=== PATIENT | female | born 1985 | race Caucasian/White ===

== ENCOUNTER 2019-02-18 10:39 | Inpatient (IN) | payer BC ==
[2019-02-18] MEDS ORDERED: Buffered Lidocaine 1% SYRIN* 1 ML/SYRINGE INTRADERM ONE (12:36)
[2019-02-18] MEDS ORDERED: Azithromycin TAB* 250 MG PO ONE (12:42)
--- NOTE | 2019-02-18 12:52 | HP ---
General Information - Reason for Visit Pt presents with gross SROM after voiding this AM. Vaginal pooling confirmed in clinic, and ROM+ positive. Pt with very uncomplicated otherwise to date. No complaints otherwise. - General Information Maternal Age: 33 Grav: 1 Para: 0 SAB: 0 IEA: 0 Estimated Due Date: 04/07/19 Determined By: LMP Gestational Age in Weeks/Days: 33+1 Maternal Blood Type and Rh: O Positive - Results this Serology/RPR Result: Non-Reactive Rubella Result: Non-Immune HBsAg Result: Negative HIV Result: Negative Past Medical History Delivery History: See Records - G1 Pertinent Past Medical History: See Records - h/o kidney stones, anxiety Pertinent Past Surgical History: See Records - lipoma excision, kidney stone surgery Pertinent Family History: Non-Contributory - Antepartal Records Antepartal Records: Reviewed, Uncomplicated Review of Systems Constitutional: Comfortable CV Complaint: No Respiratory: Shortness of Breath: No Gastrointestinal: No Nausea/Vomiting, Normal Bowel Movement Genitourinary: Leaking Fluid, No Dysuria, No Bleeding Musculoskeletal: No Complaint Neurological: No Headache Movement: Normal Exam Allergies/Adverse Reactions: Allergies No Known Allergies Allergy (Verified 02/09/17 13:23) VS normal, afebrile Lab Values - Entire Visit: Laboratory Tests 02/18/19 11:03 Vag Amniotic Fld Detect Positive - Measurements Height: 5 ft 2 in Weight: 162 lb Weight in lbs: [id number] Body Mass Index (BMI): 29.6 Pre- Weight: 135 lb Weight Gained This : 27 lbs and 0 ozs - Exam Breast: Breast Exam Deferred Extremities: No Edema Heart: Normal Rhythm/Heart Sounds HEENT: No Significant Findings Lungs: Clear Bilaterally Rectal: Rectal Exam Deferred - Abdominal Exam Abdomen Exam: Non-Tender, Fundal Height Consistent with Dates - Ultrasound/Biophysical Profile Ultrasound Status: Bedside Exam - vertex presentation, somewhat decreased fluid seen subjectively, active FMs seen Targeted Exam Findings Membrane Status: SROM Amniotic Fluid Evaluation: Gross Rupture, Positive ROM Plus Sterile Speculum Exam: In office, pooling seen Bleeding/Discharge: None EFM Findings - External Monitor Findings Baseline Heart Rate: 130 External Monitor Findings: Accelerations Present, No Pattern of Variable or Late Decelerations, Variability Moderate, Baseline Stable Contractions: None Assessment/Plan - Assessment 33+1 wks with PPROM, no evidence of infection or labor at this point. Very reassuring status. - Obstetrical Risk Factors Obstetrical Risk Factors: GBS Unknown - Plan Plan: Admit - Anticipate Vaginal Delivery Plan Comment: Discussed plan at length. Admit until delivery. Plan induction at 34 wks (). IV antibiotics ordered for 24 hrs, then PO for 5 days. Betamethasone ordered (48 hrs). Plan NST BID. Will obtain growth ultrasound. NICU consult. All questions answered. - Date/Time of Admission Date of Admission: 02/18/19 Time of Admission: 12:56
[2019-02-18] MEDS ORDERED: NS 0.9% 100 ML* 0 ML ONE (13:06)
[2019-02-18] MEDS: Ampicillin ADVAN(*) 2 GM in NS 0.9% 100 ML* 100 ML IVPB SCH ×2 (13:56→19:58)
[2019-02-18] MEDS: Betamethasone INJ* 6 MG/ML 5 ML VIAL (30 MG) IM SCH (13:57)
[2019-02-18 13:59] LABS: ABS Lymphocytes 1.2 10^3/ul (1.0-4.8); ABS Monocytes 0.6 10^3/ul (0-0.8); ABS Neutrophils 9.7 10^3/ul (1.5-7.7); Eosinophil % 0.1 %; Hematocrit 33 % (35-47); Hemoglobin 11.3 g/dL (12.0-16.0); Lymphocyte % 10.4 %; Mean Corpuscular HGB Conc 34 g/dL (31-36); Mean Corpuscular Hemoglobin 32 pg (27-31); Mean Corpuscular Volume 93 fL (80-97); Mean Platelet Volume 8.5 fL (7.4-10.4); Nucleated Red Blood Cells % 0.1; Platelet Count 254 10^3/uL (150-450); Red Blood Count 3.59 10^6 /uL (3.70-4.87); Red Cell Distribution Width 14 % (10.5-15); White Blood Count 11.5 10^3/uL (3.5-10.8)
[2019-02-19] MEDS: Ampicillin ADVAN(*) 2 GM in NS 0.9% 100 ML* 100 ML IVPB SCH ×4 (00:56→19:48)
--- NOTE | 2019-02-19 09:10 | PN ---
Progress Note - Progress Note Date of Service: 02/19/19 Note: see green sheet. nst reactive/ reviewed paln for care 33 + week pprom steroids/ antibiotics/ induction at 34 weeks/ monitor for infection
[2019-02-19] MEDS: Prenatal Vitamin TAB PO SCH ×2 (10:28→10:29)
[2019-02-19] MEDS: Calcium Carbonate CHEW TAB* 500 MG (TUMS) PO PRN ×2 (10:28→22:12)
[2019-02-19] MEDS: Betamethasone INJ* 6 MG/ML 5 ML VIAL (30 MG) IM SCH (13:26)
[2019-02-20] MEDS: Ampicillin ADVAN(*) 2 GM in NS 0.9% 100 ML* 100 ML IVPB SCH ×3 (01:48→13:44)
--- NOTE | 2019-02-20 07:05 | PN ---
Progress Note - Progress Note Date of Service: 02/20/19 Note: pt doing well + fm vss afebrile uterus nontender nst reactive. 33+ week s pprom continue antibiotics
[2019-02-20] MEDS: Calcium Carbonate CHEW TAB* 500 MG (TUMS) PO PRN (07:45)
[2019-02-20] MEDS: Prenatal Vitamin TAB PO SCH (19:13)
[2019-02-20] MEDS: Amoxicillin PO (*) 875 MG TAB PO SCH (21:15)
[2019-02-21] MEDS: Amoxicillin PO (*) 875 MG TAB PO SCH ×2 (08:56→21:01)
[2019-02-21] MEDS: Prenatal Vitamin TAB PO SCH (09:03)
--- NOTE | 2019-02-21 12:33 | PN ---
Progress Note - Progress Note Date of Service: 02/21/19 Note: S: pt feels well. Leaking clear fluid intermittently. No VB. +FM though less than before she was hospitalized. Occ BH but nothing persistent. No fever/ chills. AVSS. RNST Gen: NAD Abd: soft, NT Ext: no swelling or calf tenderness A: P0 @33.4wks GA with PPROM, on latency abx, GBS+. No s/s of labor or infection at this point. P: discussed extensively with pt. Would recommend Induction on when she is 34 weeks. May consider cervical exam thu with possible cervidil placement if not favorable. Otherwise, would start on , discussed pitocin, GBS positive. Many questions answered.
[2019-02-22] MEDS: Amoxicillin PO (*) 875 MG TAB PO SCH ×2 (08:51→21:00)
[2019-02-22] MEDS: Prenatal Vitamin TAB PO SCH (08:51)
--- NOTE | 2019-02-22 08:59 | PN ---
Progress Note - Progress Note Date of Service: 02/22/19 SOAP: Subjective: [ at 33+ weeks EGA with PPROM. Patient is comfortable, denies abdominal pain/contractions, or vaginal bleeding.] Objective: [ Vital Signs Temp Pulse Resp BP Pulse Ox 97.7 F 68 20 114/60 100 02/21/19 21:05 02/21/19 21:05 02/21/19 21:05 02/21/19 21:05 02/21/19 21:05 Non stress test Reactive, no contractions noted on toco's. Lungs CTA B/L, No CVA tenderness CV RRR Abdomen soft, not tender, gravid with palpable movement.] Assessment: [PPROM at 33 weeks EGA, stable with no /sx of PTL or infection.] Plan: [Continue current care and surveillance. Planned induction at 34 weeks unless labor or s/sx of chorioamnionitis ensues.]
[2019-02-22] MEDS ORDERED: Witch Hazel PAD* JAR ONE (13:19)
[2019-02-22] MEDS ORDERED: Witch Hazel PAD* JAR TOPICAL PRN (13:30)
[2019-02-23] MEDS: Amoxicillin PO (*) 875 MG TAB PO SCH ×3 (09:12→20:57)
[2019-02-23] MEDS: Prenatal Vitamin TAB PO SCH ×2 (10:45→10:46)
--- NOTE | 2019-02-23 15:59 | PN ---
Progress Note - Progress Note Date of Service: 02/23/19 SOAP: Subjective: [Pt doing well no pain] Objective: [VSS AFEB Uterus; soft non tender Ext: non tender no edema] Assessment: [Pt 33 yo with PProm at 33 6/7 weks] Plan: [Pt is to have induction tomorrow at 34 weeks/ GBS positive so will need PCN G in labor.]
[2019-02-24] MEDS ORDERED: Buffered Lidocaine 1% SYRIN* 1 ML/SYRINGE INTRADERM ONE (07:43)
[2019-02-24] MEDS ORDERED: Penicillin G Potassium IV* 5,000,000 UNITS in NS 0.9% 100 ML* 100 ML IVPB ONE (07:43)
[2019-02-24] MEDS ORDERED: Lactated Ringers 1000 ML Bag* 1,000 ML IV ONE ×2 (07:43→23:30)
[2019-02-24] MEDS ORDERED: Misoprostol TAB* 100 MCG PO ONE ×2 (07:59→12:49)
[2019-02-24] MEDS ORDERED: Lactated Ringers 1000 ML Bag* 1,000 ML IV SCH ×2 (08:00→23:45)
[2019-02-24 08:57] LABS: ABS Eosinophils 0.1 10^3/ul (0-0.6); ABS Lymphocytes 1.7 10^3/ul (1.0-4.8); ABS Monocytes 0.6 10^3/ul (0-0.8); ABS Neutrophils 10.6 10^3/ul (1.5-7.7); Eosinophil % 0.6 %; Hematocrit 36 % (35-47); Hemoglobin 12.1 g/dL (12.0-16.0); Lymphocyte % 13.3 %; Mean Corpuscular HGB Conc 34 g/dL (31-36); Mean Corpuscular Hemoglobin 31 pg (27-31); Mean Corpuscular Volume 93 fL (80-97); Mean Platelet Volume 8.1 fL (7.4-10.4); Platelet Count 292 10^3/uL (150-450); Red Blood Count 3.85 10^6 /uL (3.70-4.87); Red Cell Distribution Width 14 % (10.5-15)
--- NOTE | 2019-02-24 11:13 | PTEDU ---
Patient Name: EMILY MCGHEE EMILY MCGHEE selected video: Never Ever Shake a Baby to view on 02/24/2019 at 11:12:50 AM from [id number]
--- NOTE | 2019-02-24 11:25 | PTEDU ---
Patient Name: EMILY MCGHEE EMILY MCGHEE selected video: Follow Me Mum: [employer] to Successful to view on 02/24 at 11:25:08 AM from [id number]
--- NOTE | 2019-02-24 12:47 | PN ---
Progress Note - Progress Note Date of Service: 02/24/19 Note: Pt at 34+0 wks with PPROM, admitted one week ago. Labor induction planned for today. Pt without complaints, active FMs, continued occ leakage of clear fluid VS normal, afebrile. Abd soft, nontender NST reactive, no decels. Toxey: no ctx Cervix FT/50%/-2 A/P: 34+0 with PPROM. Very reassuring status. Unfavorable cervix, so will start induction with PO misoprostol. Plan to reassess after 4 hrs.
[2019-02-24] MEDS ORDERED: Misoprostol TAB* 100 MCG ONE (12:54)
[2019-02-24] MEDS: Penicillin G Potassium IV* 2,500,000 UNITS in NS 0.9% 100 ML* 100 ML IVPB SCH ×3 (13:09→21:00)
--- NOTE | 2019-02-24 15:42 | CONSULT ---
Consult Consult: Consult requested by Dr. Orourke. Spoke to mother on two occassions- 02/21 and 02/22. PC: 33 yo prim[place]av[place], serologies negative, GBS positive presented to L&D following SROM at 33 1/7 weeks. CAROL ANN 04/07/19 by dates. No other symptoms. No significant history. She was admitted for antibiotics and steroids with planned induction at 34 weeks gestation. I discussed the problems of prematurity including, respiratory distress syndrome , hypoglycemia, feeding problems, sepsis, Hyperbilirubinemia, in detail with mother and NICU information leaflets given. Answered all questions and will reconsult again if mother has any questions. Time spent on consult: 30 minutes.
[2019-02-24] MEDS ORDERED: Oxytocin in LR* 20 UNITS/1,000 ML BAG IVPB SCH (18:00)
[2019-02-24] MEDS ORDERED: OBEPIDURAL* 250 ML EPIDURAL ONE (21:30)
[2019-02-24] MEDS ORDERED: Sodium Citrate/Citric Acid* 15 ML UDC PO PRN (23:30)
[2019-02-24] MEDS ORDERED: Famotidine TAB* 20 MG PO PRN (23:30)
[2019-02-24] MEDS ORDERED: Phenylephrine 40 MCG/ML SYRINGE IV PUSH PRN ×2 (23:30)
[2019-02-24] MEDS ORDERED: Lactated Ringers 1000 ML Bag* 500 ML IV PRN ×2 (23:30)
[2019-02-24] MEDS ORDERED: OBEPIDURAL* 250 ML EPIDURAL SCH (23:45)
[2019-02-25] MEDS: Penicillin G Potassium IV* 2,500,000 UNITS in NS 0.9% 100 ML* 100 ML IVPB SCH (01:20)
[2019-02-25] MEDS ORDERED: Witch Hazel PAD* JAR TOPICAL PRN (02:46)
[2019-02-25] MEDS ORDERED: Acetaminophen TAB* 325 MG PO PRN (02:46)
[2019-02-25] MEDS ORDERED: Measles, Mumps,Rubella VACC* 0.5 ML/VIAL SUBCUT ONE (02:50)
[2019-02-25] MEDS ORDERED: Oxytocin in LR* 20 UNITS/1,000 ML BAG IVPB SCH (03:00)
[2019-02-25] MEDS ORDERED: Lactated Ringers 1000 ML Bag* 1,000 ML IV SCH (03:00)
--- NOTE | 2019-02-25 03:00 | PROCNOTE ---
[facility] OB: Delivery Note - Delivery A Date of : 02/25/19 Time of : 02:22 Sex: Female Weight at : 5 lb 8 oz Score 1 Minute: 9 Score 5 Minutes: 9 Gestational Age in Weeks and Days at Delivery: 34 Weeks and 1 Days Delivery Method: Spontaneous Vaginal Labor: Induced Did Patient attempt ?: N/A, No Previous Amniotic Fluid: Clear Estimated Blood Loss: 300 Anesthesia/Analgesia: CEI for Labor Delivered By: Faby Orourke - Nursery Level of Nursery: Regular/Bedside - Perineum Perineal Injury: Vaginal Laceration - small, posterior Perineal Repair: By Delivering Practioner - Events Delivery Events of Note: Pitocin During Labor, Full Course of Antibiotics, ROM > 24 Hours, Steriods Given for Lung Maturity - Additional Delivery Notes Additional Delivery Notes: Pt admitted at 33 wks with PPROM, received two doses of betamethasone and a full course of latency antibiotics until induction started this morning at 34+0 wks. Cervical ripened with misoprostol x2, then she received pitocin. She received an epidural at about 4cm. She then progressed well to C/C. She pushed for less than 10 min to deliver the head in a controlled fashion. Compound posterior arm present. Shoulders and body delivered easily. Baby with good tone and cried quickly, placed on mother's abdomen. Dr. Saxena present shortly after delivery. IV pitocin increased. Placenta delivered quickly and intact. Excellent fundal tone. Small posterior vaginal lac closed with a few interrupted stitches of 3-0 Vicryl rapide.
[2019-02-25] MEDS ORDERED: Lidocaine 1% INJ* 10 MG/ML 30 ML SDV ONE (04:44)
[2019-02-25] MEDS: Dibucaine 1% 28.35 GM TUBE PR PRN (08:00)
[2019-02-25] MEDS: Ibuprofen TAB* 600 MG PO PRN ×3 (08:00→23:29)
[2019-02-25] MEDS: Docusate CAP* 100 MG PO SCH ×3 (08:00→21:04)
[2019-02-25] MEDS ORDERED: Simethicone TAB* 80 MG TAB.CHEW PO SCH (08:30)
[2019-02-25] MEDS: Prenatal Vitamin TAB PO SCH (19:50)
[2019-02-26 06:41] LABS: ABS Basophils 0.2 10^3/ul (0-0.2); ABS Eosinophils 0.2 10^3/ul (0-0.6); ABS Lymphocytes 2.1 10^3/ul (1.0-4.8); ABS Monocytes 0.8 10^3/ul (0-0.8); ABS Neutrophils 8.7 10^3/ul (1.5-7.7); Eosinophil % 1.4 %; Hematocrit 34 % (35-47); Hemoglobin 11.4 g/dL (12.0-16.0); Mean Corpuscular HGB Conc 33 g/dL (31-36); Mean Corpuscular Hemoglobin 31 pg (27-31); Mean Corpuscular Volume 94 fL (80-97); Mean Platelet Volume 7.6 fL (7.4-10.4); Platelet Count 244 10^3/uL (150-450); Red Blood Count 3.64 10^6 /uL (3.70-4.87); Red Cell Distribution Width 14 % (10-15)
[2019-02-26] MEDS: Docusate CAP* 100 MG PO SCH ×3 (08:28→22:09)
[2019-02-26] MEDS: Ibuprofen TAB* 600 MG PO PRN ×3 (08:28→22:08)
[2019-02-26] MEDS ORDERED: Ferrous Gluconate TAB* 324 MG TAB PO SCH (09:00)
[2019-02-26] MEDS: Prenatal Vitamin TAB PO SCH (16:14)
[2019-02-26] MEDS: Dibucaine 1% 28.35 GM TUBE PR PRN (22:09)
[2019-02-27 08:30] VITALS: BP 113/74
[2019-02-27] MEDS: Docusate CAP* 100 MG PO SCH (09:37)
[2019-02-27] MEDS: Prenatal Vitamin TAB PO SCH (09:37)
== END 2019-02-27 11:15 | disposition home or self-care (01) | DRG 560 ==
LOC: MCHOBOUT 10:39 → MCHOB 13:03
PROVIDERS: ADMIT Obstetrics & Gynecology; ATTEND Obstetrics & Gynecology
PROC: 10E0XZZ Delivery of Products of Conception, External Approach (ICD-10-PCS; principal; 2019-02-25)
PROC: 3E033VJ Introduction of Other Hormone into Peripheral Vein, Percutaneous Approach (ICD-10-PCS; 2019-02-25)
PROC: 0KQM0ZZ Repair Perineum Muscle, Open Approach (ICD-10-PCS; 2019-02-25)
DX: O42.113 Preterm premature rupture of membranes, onset of labor more than 24 hours following rupture, third trimester (principal); O71.4 Obstetric high vaginal laceration alone; Z37.0 Single live birth; O99.344 Other mental disorders complicating childbirth; F41.9 Anxiety disorder, unspecified; O99.824 Streptococcus B carrier state complicating childbirth; O32.2XX0 Maternal care for transverse and oblique lie, not applicable or unspecified; Z3A.34 34 weeks gestation of pregnancy
CPT/HCPCS: 36415; 76815; 84112; 85025; 86850; 86900; 86901; 87070; 87077; 90707; A9270-GY; J0702; J2540; S0191

== ENCOUNTER 2020-09-04 00:42 | Inpatient (IN) ==
[2020-09-04] MEDS ORDERED: Penicillin G Potassium IV 5,000,000 UNITS in NS 0.9% 100 ML BAG IVPB ONE (00:56)
[2020-09-04] MEDS ORDERED: Oxytocin in LR 20 UNITS/1,000 ML BAG IVPB ONE (01:09)
[2020-09-04] MEDS ORDERED: Lactated Ringers 1000 ml BAG 1,000 ML IV ONE (01:54)
[2020-09-04] MEDS ORDERED: Buffered Lidocaine 1% SYRIN 1 ml INTRADERM ONE (01:54)
[2020-09-04] MEDS ORDERED: Lactated Ringers 1000 ml BAG 1,000 ML IV SCH ×2 (02:00→03:00)
[2020-09-04] MEDS ORDERED: Dibucaine 1% OINT 28.35 GM TUBE PR PRN (02:11)
[2020-09-04] MEDS ORDERED: Glycerin ADULT 2.4 gm SUPP PR PRN (02:11)
[2020-09-04] MEDS ORDERED: Witch Hazel PAD JAR TOPICAL PRN (02:11)
[2020-09-04 02:21] LABS: ABS Eosinophils 0.1 10^3/ul (0-0.6); ABS Lymphocytes 2.6 10^3/ul (1.0-4.8); ABS Neutrophils 8.7 10^3/ul (1.5-7.7); Eosinophil % 0.4 %; Hematocrit 37 % (35-47); Hemoglobin 12.6 g/dL (12.0-16.0); Lymphocyte % 20.7 %; Mean Corpuscular HGB Conc 34 g/dL (31-36); Mean Corpuscular Hemoglobin 31 pg (27-31); Mean Corpuscular Volume 89 fL (80-97); Mean Platelet Volume 9.6 fL (7.4-10.4); Nucleated Red Blood Cells % 0.1; Platelet Count 363 10^3/uL (150-450); Red Blood Count 4.12 10^6 /uL (3.70-4.87); Red Cell Distribution Width 14 % (10-15); White Blood Count 12.4 10^3/uL (3.5-10.8)
[2020-09-04 02:57] LABS: Urine Benzodiazepine Screen None Detected (None Detect); Urine Cannabinoids Screen None Detected (None Detect); Urine Opiates Screen None Detected (None Detect)
[2020-09-04] MEDS ORDERED: Oxytocin in LR 20 UNITS/1,000 ML BAG IVPB SCH (03:00)
[2020-09-04] MEDS ORDERED: Lidocaine 1% VIAL 10 MG/ML VIAL ONE (04:33)
[2020-09-04] MEDS ORDERED: Penicillin G Potassium IV 3,000,000 UNITS in NS 0.9% 100 ml BAG 100 ML IVPB SCH (05:30)
[2020-09-04] MEDS ORDERED: Lidocaine 2% JELLY 6 ML TOPICAL ONE (20:04)
[2020-09-05 07:23] LABS: ABS Eosinophils 0.1 10^3/ul (0-0.6); ABS Lymphocytes 2.2 10^3/ul (1.0-4.8); ABS Monocytes 0.6 10^3/ul (0-0.8); ABS Neutrophils 5.3 10^3/ul (1.5-7.7); Eosinophil % 1.8 %; Hematocrit 31 % (35-47); Hemoglobin 10.6 g/dL (12.0-16.0); Lymphocyte % 26.4 %; Mean Corpuscular HGB Conc 34 g/dL (31-36); Mean Corpuscular Hemoglobin 31 pg (27-31); Mean Corpuscular Volume 90 fL (80-97); Mean Platelet Volume 9.3 fL (7.4-10.4); Platelet Count 218 10^3/uL (150-450); Red Blood Count 3.45 10^6 /uL (3.70-4.87); Red Cell Distribution Width 14 % (10-15); White Blood Count 8.3 10^3/uL (3.5-10.8)
[2020-09-05] MEDS ORDERED: Lidocaine 2% JELLY 6 ML TOPICAL ONE (12:16)
[2020-09-06 08:14] VITALS: BP 123/71
== END 2020-09-06 10:57 | disposition home or self-care (01) | DRG 560 ==
LOC: MCHOBOUT 00:42 → MCHOB 00:47
PROVIDERS: ADMIT Obstetrics & Gynecology; ATTEND Obstetrics & Gynecology